=== PATIENT | female | born 1940 | race Caucasian/White ===

== ENCOUNTER 2020-12-10 09:37 | Outpatient (CLI) | payer MEDICARE, SELFPAY ==
[2020-12-10 10:25] VITALS: BP 131/72; PULSE 63; RESP 17; O2SAT 96
--- NOTE | 2020-12-10 10:25 | PC.NURSE ---
pt stayed for 20 minutes after her injection. pt denies any pain or discomfort at this time. no s/s of a reaction at the injection site at this time
== END 2020-12-10 10:27 | disposition home or self-care (01) ==
PROVIDERS: PCP Family Medicine; Visit Provider Family Medicine
DX: M85.89 Other specified disorders of bone density and structure, multiple sites (principal)
CPT/HCPCS: 96372; J0897